=== PATIENT | male | born 1985 | race Hispanic/Latino ===

== ENCOUNTER 2019-04-25 17:29 | Emergency (ER) | payer SELFPAY ==
[2019-04-25] MEDS ORDERED: NACL 0.9% 1000 ML 1,000 ML IV ONE (17:38)
--- NOTE | 2019-04-25 18:10 | Emergency Department Report ---
History of Present Illness - General Chief Complaint: Overdose Stated Complaint: OVERDOSE Time Seen by Provider: 04/25/19 17:37 Source: family, EMS Mode of arrival: Stretcher Limitations: Altered Mental Status - History of Present Illness Initial Comments: Jimmy is a healthy 34-year-old male with history of heroin abuse who presents after to the emergency department via EMS after heroin overdose. Family members called EMS. Family members informed EMS that he used heroin before he became unresponsive. He received 2 mg IV Nalonxe which aroused patient. Ems discovered the patient to be somnolent lethargic with pinpoint pupils prior to naloxone administration. due to combative behavior. He required sedation with Haldol and Versed. He received 5 mg of Haldol. Also received 5 mg of Versed. Patient is now sedated. Jimmy recently released from skilled nursing. Complaint: accidental overdose -: This afternoon How Overdose Was Discovered: family/friend present Context: Accidental Overdose: wanted to get high Treatments Prior to Arrival: narcan - Related Data Allergies Allergy/AdvReac Type Severity Reaction Status Date / Time No Known Allergies Allergy Unverified 04/25/19 17:44 ED Review of Systems ROS: Stated complaint: OVERDOSE Other details as noted in HPI Comment: Unobtainable due to pts medical conditions (sedated) ED Past Medical Hx - Past Medical History Previous Medical History?: No - Surgical History Past Surgical History?: No - Social History Smoking Status: Unknown if ever smoked Substance Use Type: Heroin ED Physical Exam - General Limitations: Altered Mental Status General appearance: lethargic, other (pale clammy) - Head Head exam: Present: atraumatic, normocephalic - Eye Eye exam: Present: normal appearance. Absent: scleral icterus, conjunctival injection, nystagmus - ENT ENT exam: Present: mucous membranes moist - Neck Neck exam: Present: normal inspection, full ROM - Respiratory Respiratory exam: Present: normal lung sounds bilaterally. Absent: respiratory distress, wheezes, rhonchi, stridor - Cardiovascular Cardiovascular Exam: Present: normal rhythm, tachycardia, normal heart sounds. Absent: systolic murmur, diastolic murmur, rubs, gallop - GI/Abdominal GI/Abdominal exam: Present: soft, normal bowel sounds. Absent: distended, tenderness, guarding, rebound - Rectal Rectal exam: Present: deferred - Extremities Exam Extremities exam: Present: normal inspection - Neurological Exam Neurological exam: Present: other (sedated) - Psychiatric Psychiatric exam: Present: flat affect - Skin Skin exam: Present: diaphoretic, pallor. Absent: rash ED Course Vital Signs 04/25/19 04/25/19 04/25/19 17:32 17:44 17:45 Temperature 97.7 F Pulse Rate 112 H 111 H 108 H Respiratory 15 16 15 Rate Blood Pressure 99/54 Blood Pressure 102/60 [Left] O2 Sat by Pulse 93 92 Oximetry 04/25/19 04/25/19 04/25/19 18:00 18:15 18:30 Temperature Pulse Rate 102 H 95 H 91 H Respiratory 15 13 12 Rate Blood Pressure 95/53 98/56 99/57 Blood Pressure [Left] O2 Sat by Pulse 94 96 Oximetry 04/25/19 04/25/19 18:45 18:54 Temperature Pulse Rate 93 H Respiratory 11 L 18 Rate Blood Pressure 105/63 Blood Pressure [Left] O2 Sat by Pulse 93 Oximetry ED Medical Decision Making - Medical Decision Making Yomi presents with an intentional overdose of heroin. He required chemical restraint with Haldol and Versed after he was revived. He has been monitored here in the ED without airway or cardiovascular compromise. After 2 hours of observation, he is awake alert oriented. He is insightful. He admitted that he injected himself with heroin in order to "get high". He denies suicidal or homicidal ideation. His family members at the bedside. He is drinking. He is appropriate for discharge home. Critical Care Time: Yes Critical care attestation.: If time is entered above; I have spent that time in minutes in the direct care of this critically ill patient, excluding procedure time. 40 minutes of critical care time excluding procedures were used in the care of the patient. Patient required multiple assessments and interventions. I reviewed the electronic medical record. I spoke with consultants involved in the care of the patient. ED Disposition Clinical Impression: Accidental heroin overdose Disposition: DC-01 TO HOME OR SELFCARE Is pt being admited?: No Does the pt Need Aspirin: No Condition: Stable Instructions: Polysubstance Abuse (ED) Referrals: [facility] [Outside] - 3-5 Days
[2019-04-25 19:26] VITALS: BP 109/59
[2019-04-25 20:02] LABS: Cannabinoid Screen,Urine PRESUMPTIVE NEGATIVE; Cocaine Screen,Urine PRESUMPTIVE NEGATIVE; Methadone Screen,Urine PRESUMPTIVE NEGATIVE; Opiate Screen,Urine PRESUMPTIVE NEGATIVE
[2019-04-25 20:18] LABS: Amphetamine Screen,Urine PRESUMPTIVE POSITIVE; Benzodiazepines Screen,Urine PRESUMPTIVE POSITIVE
== END 2019-04-25 20:30 | disposition home or self-care (01) ==
LOC: ED 17:29
DX: T40.1X1A Poisoning by heroin, accidental (unintentional), initial encounter (principal); Y92.89 Other specified places as the place of occurrence of the external cause
CPT/HCPCS: 36415; 80307; 99284; J7030; 80320; G0480; J0153

== ENCOUNTER 2020-08-25 10:03 | Emergency (ER) | payer SELFPAY ==
--- NOTE | 2020-08-25 11:29 | Emergency Department Report ---
ED General Adult HPI - General Chief complaint: Altered Mental Status Stated complaint: HYPOTHERMIA Time Seen by Provider: 08/25/20 11:00 Source: patient, EMS Mode of arrival: Stretcher Limitations: Other - History of Present Illness Initial comments: Patient is 35 years old male with history of polysubstance abuse. Patient brought by EMS from a warehouse after patient was found by bystander laying on the floor with altered mental status. Upon arrival to the ER patient is alert, oriented x3 in no acute distress. Patient admitted that he has been using heroin and Xanax for the last few days. Patient was seen here before for heroin overdose. Patient denied any suicidal or homicidal ideation. No visual or auditory hallucination. Patient is complaining of chest pain described as sharp on both side. Patient also stated that he has been having runny nose cough and congestion however he denied any fever or chills. - Related Data Allergies Allergy/AdvReac Type Severity Reaction Status Date / Time No Known Allergies Allergy Verified 08/26/20 05:16 ED Review of Systems ROS: Stated complaint: HYPOTHERMIA Other details as noted in HPI Comment: All other systems reviewed and negative Constitutional: denies: chills, fever ENT: congestion Respiratory: cough Cardiovascular: chest pain. denies: palpitations Gastrointestinal: denies: abdominal pain, nausea, vomiting Neurological: denies: headache, weakness, numbness, paresthesias, confusion, abnormal gait Psychiatric: denies: anxiety, depression, auditory hallucinations, visual hallucinations, homicidal thoughts, suicidal thoughts ED Past Medical Hx - Past Medical History Previous Medical History?: No - Surgical History Past Surgical History?: No - Social History Smoking Status: Current Every Day Smoker Substance Use Type: Alcohol, Heroin, Other ED Physical Exam - General Limitations: Other General appearance: alert, in no apparent distress - Head Head exam: Present: atraumatic, normocephalic, normal inspection - Eye Eye exam: Present: normal appearance - ENT ENT exam: Present: normal exam, normal orophraynx, mucous membranes moist - Neck Neck exam: Present: normal inspection, full ROM. Absent: tenderness, meningismus - Respiratory Respiratory exam: Present: normal lung sounds bilaterally - Cardiovascular Cardiovascular Exam: Present: regular rate, normal rhythm, normal heart sounds - GI/Abdominal GI/Abdominal exam: Present: soft, normal bowel sounds. Absent: distended, tenderness, guarding, rebound, rigid, organomegaly, mass, bruit, pulsatile mass, hernia - Extremities Exam Extremities exam: Present: normal inspection, full ROM, normal capillary refill. Absent: pedal edema, calf tenderness - Back Exam Back exam: Present: normal inspection, full ROM. Absent: CVA tenderness (R), CVA tenderness (L) - Neurological Exam Neurological exam: Present: alert, oriented X3, CN II-XII intact, normal gait, reflexes normal. Absent: motor sensory deficit - Psychiatric Psychiatric exam: Present: normal mood - Skin Skin exam: Present: warm, intact, normal color ED Course Vital Signs 08/25/20 08/25/20 08/25/20 10:10 11:00 13:12 Temperature 98.0 F Pulse Rate 98 H 111 H Respiratory 16 16 16 Rate Blood Pressure 137/81 Blood Pressure 123/87 [Right] O2 Sat by Pulse 99 99 100 Oximetry 08/25/20 08/25/20 08/25/20 20:08 20:16 20:30 Temperature Pulse Rate 108 H 107 H Respiratory 17 20 Rate Blood Pressure 122/88 118/81 106/70 Blood Pressure [Right] O2 Sat by Pulse 98 95 95 Oximetry 08/25/20 08/25/20 08/25/20 20:46 21:00 21:16 Temperature Pulse Rate 111 H 109 H 109 H Respiratory 20 20 19 Rate Blood Pressure 122/88 116/77 116/77 Blood Pressure [Right] O2 Sat by Pulse 96 95 96 Oximetry 08/25/20 08/25/20 08/25/20 21:30 21:46 22:00 Temperature Pulse Rate 96 H 104 H 102 H Respiratory 15 4 L 0 L Rate Blood Pressure 108/71 108/71 113/75 Blood Pressure [Right] O2 Sat by Pulse 95 95 96 Oximetry 08/25/20 08/25/20 08/25/20 22:16 22:30 22:46 Temperature Pulse Rate 99 H 88 101 H Respiratory 0 L 15 19 Rate Blood Pressure 113/75 108/72 108/72 Blood Pressure [Right] O2 Sat by Pulse 95 98 96 Oximetry 08/25/20 08/25/20 08/25/20 23:00 23:16 23:30 Temperature Pulse Rate 100 H 101 H 90 Respiratory 13 12 13 Rate Blood Pressure 111/77 111/77 106/78 Blood Pressure [Right] O2 Sat by Pulse 98 93 97 Oximetry 08/25/20 08/26/20 08/26/20 23:46 00:00 00:16 Temperature Pulse Rate 85 95 H 101 H Respiratory 13 18 17 Rate Blood Pressure 106/78 108/77 108/77 Blood Pressure [Right] O2 Sat by Pulse 98 95 97 Oximetry 08/26/20 08/26/20 08/26/20 00:30 00:46 01:00 Temperature Pulse Rate 98 H 91 H 89 Respiratory 18 15 19 Rate Blood Pressure 114/77 114/77 109/79 Blood Pressure [Right] O2 Sat by Pulse 98 96 Oximetry 08/26/20 08/26/20 08/26/20 01:16 01:30 01:46 Temperature Pulse Rate 93 H 92 H 93 H Respiratory 18 18 19 Rate Blood Pressure 109/79 114/78 114/78 Blood Pressure [Right] O2 Sat by Pulse 96 96 98 Oximetry 08/26/20 08/26/20 08/26/20 02:00 02:16 02:30 Temperature Pulse Rate 91 H 87 84 Respiratory 15 16 18 Rate Blood Pressure 109/75 109/75 110/76 Blood Pressure [Right] O2 Sat by Pulse 97 97 96 Oximetry 08/26/20 08/26/20 08/26/20 02:46 03:00 03:16 Temperature Pulse Rate 84 78 87 Respiratory 15 15 16 Rate Blood Pressure 110/76 102/74 102/74 Blood Pressure [Right] O2 Sat by Pulse 96 98 97 Oximetry 08/26/20 08/26/20 08/26/20 03:30 03:46 04:00 Temperature Pulse Rate 79 88 89 Respiratory 14 17 16 Rate Blood Pressure 115/83 115/83 113/86 Blood Pressure [Right] O2 Sat by Pulse 100 96 97 Oximetry 08/26/20 08/26/20 08/26/20 04:16 04:30 04:46 Temperature Pulse Rate 102 H 77 102 H Respiratory 16 16 20 Rate Blood Pressure 113/86 111/81 111/81 Blood Pressure [Right] O2 Sat by Pulse 98 96 99 Oximetry 08/26/20 08/26/20 08/26/20 05:00 05:16 05:30 Temperature Pulse Rate 89 83 86 Respiratory 17 15 7 L Rate Blood Pressure 109/80 109/80 116/84 Blood Pressure [Right] O2 Sat by Pulse 97 99 96 Oximetry 08/26/20 08/26/20 08/26/20 05:46 06:00 06:16 Temperature Pulse Rate 86 81 91 H Respiratory 12 14 0 L Rate Blood Pressure 116/84 108/77 116/84 Blood Pressure [Right] O2 Sat by Pulse 96 97 99 Oximetry 08/26/20 09:45 Temperature Pulse Rate 98 H Respiratory 16 Rate Blood Pressure Blood Pressure 126/72 [Right] O2 Sat by Pulse 98 Oximetry ED Medical Decision Making - Lab Data Result diagrams: 08/25/20 11:27 08/25/20 11:27 - EKG Data -: EKG Interpreted by Me EKG shows normal: sinus rhythm Rate: normal - EKG Data Interpretation: no acute changes - Radiology Data Radiology results: report reviewed - Medical Decision Making Patient is 35 years old male with history of polysubstance abuse. Patient brought by EMS from a warehouse after patient was found by bystander laying on the floor with altered mental status. Upon arrival to the ER patient is alert, oriented x3 in no acute distress. Patient admitted that he has been using heroin and Xanax for the last few days. Patient was seen here before for heroin overdose. Patient denied any suicidal or homicidal ideation. No visual or auditory hallucination. Patient is complaining of chest pain described as sharp on both side. Patient also stated that he has been having runny nose cough and congestion however he denied any fever or chills. EKG shows sinus rhythm no ST elevation or depression. Chest x-ray is unremarkable. Labs reviewed and show elevated CK. UDS is positive for opiates which is consistent with his heroine abuse. Patient stated that he is depressed and he want psychiatric consult. Patient is medically cleared to be evaluated by psychiatric team. Critical care attestation.: If time is entered above; I have spent that time in minutes in the direct care of this critically ill patient, excluding procedure time. ED Disposition Clinical Impression: Altered mental status, Polysubstance abuse, Depression Disposition: ELOPED Is pt being admited?: No Condition: Stable Additional Instructions: n case of an emergency, please contact the following numbers: [facility] Crisis and Access Line: Number: Crisis Text Line: (Text START) Number: 835441 Suicide Prevention Line: Number: Emergency Number: 911 SUBSTANCE ABUSE PROGRAMS: [facility]: Location: [place], [place] [facility] Address: [address] [place] [address] [facility]: Address: [address] [place] [address] [facility]: Address: [address] [place] [address] [facility]: Address: [address] [place] [address] [facility] Address: [address] [place] [address]. Please contact above numbers to attempt placement into free based program. HOMELESS RESOURCES: [facility] NEED HELP? If you are in need of help or know someone who does, please contact us at [email or web address] call , or come to our offices at [address] [place] [address], Tuesday-Tuesday beginning at 8AM. [facility] Admission at 7am Tue to Tue Address: [address] [place] [address] Client Engagement [phone] Regular program admission occurs Tuesday through Tuesday at 7:00 amand operates on a first come, first serve basis.Because we cant anticipate program availability in advance andprogram spots are in high demand, we recommend arriving early. Space fills up fast! Next steps can include: Assignment to a [facility] program bed Connection to and placement in a partner program, or Referral to a partner agency [facility]: [facility], WOMENS Address: [address] [place] [address] How do I join the [facility] housing program? Our housing programs are offered based on availability. If you are looking to participate in our housing program, simply call [phone] to find out if we have available space. Since we do receive many calls, please allow up to 48 hours for one of our housing specialists to return your call. If we do not have vacancies, we suggest callingthe [employer] hotline at 211 for additional hous ing options. [facility] Admission at 4:30pm daily Address: [place] [address] [facility] is to take chronically homeless men and help them overcome their barriers, change them as human beings,making them productive and self- sufficient individuals. Each [facility] participant is housed at our facility for up to a year while they participate in transitional work (earning $7.40/hr for 30+ hours per week). All participants renounce dependency and remain drug and alcohol free. Personal support, case management, and workforce training is offered throughout the program. We also provide AA/NA Classes, GED classes, support in obtaining a front end driver's licenses,help setting up a bank account,and life skill preparation courses. IF A MAN IS COMMITTED TO BEING CLEAN, TO ADDRESSING THE PAST, AND TO WORKING, WE WILL HELP HIM GET A OPERATING TABLE ASSEMBLER JOB, TRANSPORTATION AND PERMANENT HOUSING WITHIN A YEAR. [facility] [address] [place] [address] [email or web address] Medicaid Programs: [facility]: Address: [address] [place] [address] [facility]: Address: [address] [place] [address] Referrals: PRIMARY CAREMD [Primary Care Provider] - 3-5 Days
--- NOTE | 2020-08-25 11:37 | XRay Report ---
CHEST 1 VIEW INDICATION: chest pain COMPARISON: None FINDINGS: Support devices: None Heart: Normal Lungs/Pleura: No acute pulmonary or pleural findings. IMPRESSION: 1. No acute disease. Signer Name: Cruzito Nicholas MD Signed: 08/25/2020 11:33 AM Workstation Name: [id number]
[2020-08-25 11:39] LABS: Basophils % (Auto) 0.4 % (0.0-1.8); Eosinophils % (Auto) 0.5 % (0.0-4.3); Hematocrit 45.2 % (35.5-45.6); Hemoglobin 15.4 gm/dl (11.8-15.2); Lymphocytes # (Auto) 1.8 K/mm3 (1.2-5.4); Lymphocytes % (Auto) 17.5 % (13.4-35.0); Mean Corpuscular HGB Conc 34 % (32-34); Mean Corpuscular Volume 87 fl (84-94); Monocytes # (Auto) 0.9 K/mm3 (0.0-0.8); Monocytes % (Auto) 9.2 % (0.0-7.3); Platelet Count 277 K/mm3 (140-440); Red Blood Count 5.19 M/mm3 (3.65-5.03); Red Cell Distribution Width 15.1 % (13.2-15.2)
[2020-08-25 12:44] LABS: BUN/Creatinine Ratio 26; Blood Urea Nitrogen 13 mg/dL (9-20); Calcium 9.8 mg/dL (8.4-10.2); Hemolysis Index 6
[2020-08-25 12:48] LABS: Alanine Aminotransferase 19 units/L (7-56); Albumin 4.3 g/dL (3.9-5); Bilirubin,Direct 0.2 mg/dL (0-0.2)
[2020-08-25] MEDS ORDERED: SODIUM CHLORIDE 0.9% 1000 ML 1,000 ML IV ONE (13:42)
[2020-08-25 14:20] LABS: Benzodiazepines Screen,Urine Negative; Cannabinoid Screen,Urine Negative; Cocaine Screen,Urine Negative; Methadone Screen,Urine Negative
[2020-08-25 14:24] LABS: Bilirubin,Urine NEG (Negative); Blood,Urine NEG (Negative); Color,Urine Yellow (Yellow); Mucus,Urine 3+ /HPF
[2020-08-25 14:48] LABS: Amphetamine Screen,Urine PRESUMPTIVE POSITIVE; Opiate Screen,Urine PRESUMPTIVE POSITIVE
[2020-08-26] MEDS ORDERED: diphenhydrAMINE 50 MG/ML VIAL ONE (05:01)
[2020-08-26] MEDS ORDERED: HYDROmorphone 1 MG/1 ML INJ ONE (05:01)
[2020-08-26 18:45] VITALS: BP 126/72
== END 2020-08-26 13:30 | disposition left against medical advice (07) ==
LOC: ED 10:03
DX: F19.10 Other psychoactive substance abuse, uncomplicated (principal); R41.82 Altered mental status, unspecified; F32.9 Major depressive disorder, single episode, unspecified; F17.200 Nicotine dependence, unspecified, uncomplicated
CPT/HCPCS: 36415; 71045; 80048; 80076; 80307; 81001; 82140; 82550; 84484; 85025; 93005; 96360; 99284; J7030; 80320; G0480; J1170; J1200

== ENCOUNTER 2021-08-18 14:25 | Emergency (ER) | payer SELFPAY ==
--- NOTE | 2021-08-18 16:09 | Emergency Department Report ---
Upper Extremity - [facility] Chief Complaint: Extremity Injury, Lower Stated Complaint: POSS FRACTURE Time Seen by Provider: 08/18/21 15:31 Upper Extremity: Right Forearm Occurred When: >5 Days (3 weeks ago) Mechanism: Hit with Object Severity: moderate Symptoms: No Pain with Movement, No Deformity, No Limited Range of Movement, No Numbness, No Weakness, No Swelling, No Bruising/Ecchymosis, No Laceration or Abrasion Other History: 36-year-old man presents to the emergency room complaining of right forearm pain that he injured 3 weeks ago by hitting his arm against the door frame. Patient reports he had taken ibuprofen for pain. This is his first time being seen for this complaint per patient. ED Review of Systems ROS: Stated complaint: POSS FRACTURE Other details as noted in HPI ED Past Medical Hx - Social History Smoking Status: Current Every Day Smoker Substance Use Type: Alcohol, Heroin, Other - Medications Home Medications: Home Medications Medication Instructions Recorded Confirmed Last Taken Type Ibuprofen [Motrin 600 MG tab] 600 mg PO Q8H PRN #30 tablet 08/18/21 Unknown Rx traMADoL [Ultram 50 MG tab] 50 mg PO Q6HR PRN #12 tablet 08/18/21 Unknown Rx Upper Extremity Exam - Exam General: Vital signs noted. No distress. Alert and acting appropriately. Head and Torso: No HEENT Abnormality, No Neck Tenderness, No Chest/Lungs Abnormality, No Abdominal Tenderness, No Back Tenderness Shoulder Exam: Yes Normal Range of Motion in Shoulder, No Shoulder Tenderness, No Clavicle Tenderness, No Shoulder Deformity, No AC Joint Tenderness Arm Exam: No Arm/Humerus Tenderness, No Arm Deformity Forearm: Yes Forearm Tenderness (right), No Forearm Deformity, No Pain with Pronation, No Pain with Supination Wrist: Yes Normal ROM in Wrist, No Wrist Tenderness, No Wrist Deformity, No Snuffbox Tenderness, No Pain with Axial Thumb Compression Hand: Yes Normal ROM in Digit(s), No Hand Tenderness, No Hand Deformity, No Digit Tenderness, No Digit(s) Deformity, No Tendon Dysfunction CMS Exam: No Broken Skin, No Normal Distal Pulses, No Normal Capillary Refill, No Normal Distal Sensation ED Course Vital Signs 08/18/21 14:56 Temperature 98.5 F Pulse Rate 110 H Respiratory 16 Rate Blood Pressure 120/86 O2 Sat by Pulse 93 Oximetry ED Medical Decision Making - Radiology Data Radiology results: report reviewed Study Comments [facility] [address] [place] [address] XRay Report Signed Patient: MADHAVI FRANKS MR#: [id number] : 1985 Acct:[id number] Age/Sex: 36 / M ADM Date: 08/18/21 Loc: ED Attending Dr: Ordering Physician: LEONARDO REYES Date of Service: 08/18/21 Procedure(s): XR forearm RT Accession Number(s): [id number] cc: LEONARDO REYES Fluoro Time In Minutes: RIGHT FOREARM HISTORY: Right forearm injury 3 weeks ago. COMPARISON: None. TECHNIQUE: 2 views of the right forearm were obtained. FINDINGS: Bones: Healing nondisplaced transverse fracture through the mid/distal ulna. Joint spaces: Maintained. Soft tissues: No significant abnormality. Additional findings: None. IMPRESSION: Healing nondisplaced transverse fracture through the mid/distal right ulna. Signer Name: Giles Coleman MD Signed: 08/18/2021 4:08 PM Workstation Name: [id number] Transcribed By: DOROTA Dictated By: GILES COLEMAN MD Electronically Authenticated By: GILES COLEMAN MD Signed Date/Time: 08/18/211607 DD/ 02 TD/TT: - Medical Decision Making 36-year-old man presents to the emergency room complaining of right forearm pain that he injured 3 weeks ago by hitting his arm against the door frame. Patient reports he had taken ibuprofen for pain. This is his first time being seen for this complaint per patient. Healing nondisplaced transverse fracture through the mid/distal right ulna. Patient be placed in a right ED OCL posterior splint. Critical care attestation.: If time is entered above; I have spent that time in minutes in the direct care of this critically ill patient, excluding procedure time. ED Disposition Clinical Impression: Fracture of right ulna with routine healing Disposition: 01 HOME / SELF CARE / HOMELESS Is pt being admited?: No Does the pt Need Aspirin: No Condition: Stable Instructions: Forearm Fracture Rehab-[facility] Additional Instructions: X-ray shows a healing fracture. Take pain medication as needed and is very important for you to follow-up with an orthopedic provider I have listed their information below for your convenience. Prescriptions: Ibuprofen [Motrin 600 MG tab] 600 mg PO Q8H PRN #30 tablet PRN Reason: Pain traMADoL [Ultram 50 MG tab] 50 mg PO Q6HR PRN #12 tablet PRN Reason: Pain Referrals: SHABNAM BENJAMIN MD [Staff Physician] - 3-5 Days Time of Disposition: 16:31
--- NOTE | 2021-08-18 16:12 | XRay Report ---
RIGHT FOREARM HISTORY: Right forearm injury 3 weeks ago. COMPARISON: None. TECHNIQUE: 2 views of the right forearm were obtained. FINDINGS: Bones: Healing nondisplaced transverse fracture through the mid/distal ulna. Joint spaces: Maintained. Soft tissues: No significant abnormality. Additional findings: None. IMPRESSION: Healing nondisplaced transverse fracture through the mid/distal right ulna. Signer Name: Giles Smith MD Signed: 08/18/2021 4:08 PM Workstation Name: [id number]
[2021-08-18 17:18] VITALS: BP 122/69
== END 2021-08-18 17:17 | disposition home or self-care (01) ==
LOC: ED 14:25
DX: S52.601A Unspecified fracture of lower end of right ulna, initial encounter for closed fracture (principal); W22.8XXA Striking against or struck by other objects, initial encounter; Y93.89 Activity, other specified; Y92.89 Other specified places as the place of occurrence of the external cause; Y99.8 Other external cause status
CPT/HCPCS: 99283